=== PATIENT | male | born 1965 | race Caucasian/White ===

== ENCOUNTER 2023-09-15 20:35 | Emergency (ER) | payer BC ==
--- NOTE | 2023-09-15 20:56 | ED Physician Documentation ---
PD HPI SYNCOPE - Stated complaint Stated Complaint: NEAR SYNCOPE - Chief complaint Chief Complaint: Neuro - History obtained from History obtained from: Patient, Family - Additional information Additional information: c/o mild dizzines x 4 days, episodic without inciting, exacerbating, nor ameliorating factors. Had not had this before. Denies recent head injury, fever. The dizziness feels like room is spinning around him. Tonight while sitting on couch watching TV, sudden worsening of what was now severe vertigo with nausea, vomiting, diaphoresis. The vertigo is worse with moving head, closing eyes. Partially ameliorated by keeping still and eyes open. Denies numbness, weakness, visual changes Review of Systems Constitutional: reports: Reviewed and negative Eyes: reports: Reviewed and negative Ears: denies: Loss of hearing, Ear pain, Drainage/discharge, Tinnitus/ringing Cardiac: reports: Reviewed and negative Respiratory: reports: Reviewed and negative GI: reports: Nausea, Vomiting. denies: Abdominal Pain PD PAST MEDICAL HISTORY - Past Medical History Past Medical History: Yes Cardiovascular: High cholesterol Musculoskeletal: Osteoarthritis Other Past Medical History: Chronic Hip pain - Past Surgical History Past Surgical History: Yes Ortho: Other - Present Medications Home Medications: Ambulatory Orders Medication Instructions Recorded Confirmed Meclizine [Antivert] 25 mg PO Q6H PRN #20 tablet 09/15/23 Ondansetron Odt [Zofran Odt] 4 mg TL Q6H PRN #14 tablet 09/15/23 Simvastatin [Zocor] 40 mg PO DAILY 09/15/23 09/15/23 - Allergies Allergies/Adverse Reactions: Allergies Allergy/AdvReac Type Severity Reaction Status Date / Time prednisone Allergy Anxiety Verified 09/15/23 20:48 - Social History Does the pt smoke?: No Smoking Status: Never smoker Does the pt drink ETOH?: Yes ETOH Use: Beer Does the pt have substance abuse?: No - Immunizations Immunizations are current?: Yes - POLST Patient has POLST: No PD ED PE NORMAL - Vitals Vital signs reviewed: Yes - General General: Alert and oriented X 3, No acute distress, Well developed/nourished - HEENT HEENT: PERRL, EOMI, Moist mucous membranes - Cardiac Cardiac: RRR, No murmur - Respiratory Respiratory: No respiratory distress, Clear bilaterally - Neuro Neuro: Alert and oriented X 3, machine sorter 2-12 intact, No motor deficit, No sensory deficit, Normal speech Eye Opening: Spontaneous Motor: Obeys Commands Verbal: Oriented GCS Score: 15 Results - Vitals Vitals: Oxygen O2 Source Room air - EKG (time done) No standard instances EKG releavant findings:: EKG personally interpreted by author of this note. Relevant findings are: Rate: Rate (enter#) (77) Rhythm: NSR, Normal P waves [place]: LAD Intervals: Normal [place], QRS normal QRS: LVH Ischemia: Normal ST segments - Labs Labs: Laboratory Tests 09/15/23 09/15/23 09/15/23 20:55 20:55 20:55 WBC 11.2 H RBC 5.06 Hgb 16.3 Hct 46.3 MCV 91.5 MCH 32.2 H MCHC 35.2 RDW 12.7 Plt Count 234 MPV 10.3 Neut # (Auto) 9.0 H Lymph # (Auto) 1.3 L Lanier # (Auto) 0.7 Eos # (Auto) 0.1 Baso # (Auto) 0.1 Absolute Nucleated RBC 0.00 Nucleated RBC % 0.0 Sodium 139 Potassium 3.2 L Chloride 105 Carbon Dioxide 24 Anion Gap 10.0 BUN 14 Creatinine 0.9 Estimated GFR (MDRD) 86 L Glucose 186 H POC Whole Bld Glucose Calcium 9.6 Total Bilirubin 0.9 AST 16 ALT 23 Alkaline Phosphatase 64 Troponin I High Sens 3.5 Total Protein 7.5 Albumin 4.7 Globulin 2.8 Albumin/Globulin Ratio 1.7 Lipase 26 09/15/23 21:03 WBC RBC Hgb Hct MCV MCH MCHC RDW Plt Count MPV Neut # (Auto) Lymph # (Auto) Lanier # (Auto) Eos # (Auto) Baso # (Auto) Absolute Nucleated RBC Nucleated RBC % Sodium Potassium Chloride Carbon Dioxide Anion Gap BUN Creatinine Estimated GFR (MDRD) Glucose POC Whole Bld Glucose 179 H Calcium Total Bilirubin AST ALT Alkaline Phosphatase Troponin I High Sens Total Protein Albumin Globulin Albumin/Globulin Ratio Lipase PD Medical Decision Making - ED course Complexity details: reviewed results, re-evaluated patient, considered differential, d/w patient ED course: H+P strongly c/w peripheral vertigo. Unremarkable CBC (mild leukocytosis noted, WBC 11.2), mild hypokalemia (3.2), mild hyperglyemia (186). Normal hs-cTn (3.5) and unremarkable EKG. No imaging studies indicated with this isolated vertigo. He is given 1 liter NS, 12.5 MG meclizine PO, 4 mg IV zofran, 25meq potassium bicarbonate PO, and 600mg ibuprofen (late in stay, patient says he has mild headache and requests this). On reevaluation, he is in NAD, reports resolution of vertigo and n/v, able to slowly turn head without recurrence of symptoms. Results d/w patient, return precautions reviewed. E-prescribed meclizine, zofran. Departure - Departure Disposition: Home, Self Care Clinical Impression: Vertigo, Hypokalemia Condition: Good Instructions: ED Potassium Deficiency, ED Vertigo Unspecified Prescriptions: Meclizine [Antivert] 25 mg PO Q6H PRN #20 tablet PRN Reason: Vertigo Ondansetron Odt [Zofran Odt] 4 mg TL Q6H PRN #14 tablet PRN Reason: Nausea / Vomiting Comments: There were no concerning findings on tonight's tests. As we discussed, your white blood cell count was just above the normal range; this is not a concerning or specific finding. Your potassium level was low (3.2); this is not nearly low enough to cause symptoms nor immediate concern. You were given a dose of potassium bicarbonate orally before discharge from the ER in order to to help normalize your potassium level. It is important that you mention your low potassium to your primary care provider when you next see them (they might recommend having a repeat check of your potassium in the coming weeks). Your blood sugar was high (186); this is not high enough to cause symptoms nor immediate concern, but also should be mentioned when you next see your primary care provider. Discharge Date/Time: 09/15/23 22:52
[2023-09-15] MEDS: SODIUM CHLORIDE 0.9% 1,000 ML IV STA (21:13)
[2023-09-15 21:14] LABS: BASOPHILS # (AUTO) 0.1 10^3/uL (0.0-0.1); BASOPHILS % (AUTO) 0.7 %; EOSINOPHILS # (AUTO) 0.1 10^3/uL (0.0-0.7); EOSINOPHILS % (AUTO) 0.9 %; HCT - HEMATOCRIT 46.3 % (42.0-52.0); HGB - HEMOGLOBIN 16.3 g/dL (14.0-18.0); LYMPHOCYTES # (AUTO) 1.3 10^3/uL (1.5-3.5); LYMPHOCYTES % (AUTO) 11.6 %; MEAN CORPUSCULAR HEMOGLOBIN 32.2 pg (27.0-31.0); MEAN CORPUSCULAR HGB CONC 35.2 g/dL (32.0-36.0); MEAN CORPUSCULAR VOLUME 91.5 fL (80.0-94.0); MEAN PLATELET VOLUME 10.3 fL (7.4-11.4); MONOCYTES # (AUTO) 0.7 10^3/uL (0.0-1.0); MONOCYTES % (AUTO) 6.6 %; NEUTROPHILS % (AUTO) 79.8 %; PLT - PLATELET COUNT 234 10^3/uL (130-450); RED BLOOD COUNT 5.06 10^6/uL (4.70-6.10); RED CELL DISTRIBUTION WIDTH 12.7 % (12.0-15.0); WHITE BLOOD COUNT 11.2 x10^3/uL (4.8-10.8)
[2023-09-15 21:36] LABS: ALBUMIN 4.7 g/dL (3.2-5.5); ALBUMIN/GLOBULIN RATIO 1.7 (1.0-2.2); BILIRUBIN,TOTAL 0.9 mg/dL (0.2-1.0); CALCIUM 9.6 mg/dL (8.5-10.3); CREATININE 0.9 mg/dL (0.6-1.3); POTASSIUM 3.2 mmol/L (3.5-4.5); TOTAL PROTEIN 7.5 g/dL (6.4-8.9)
[2023-09-15] MEDS: ONDANSETRON 4 MG/2 ML VIAL IVP STA (21:55)
[2023-09-15] MEDS: IBUPROFEN 600 MG TABLET PO STA (22:22)
[2023-09-15] MEDS: POTASSIUM BICARB 25 MEQ TABLET PO STA (22:22)
[2023-09-15] MEDS: MECLIZINE 12.5 MG TABLET PO STA (22:22)
[2023-09-15 22:56] VITALS: BP 131/92; O2SAT 97
== END 2023-09-15 22:52 | disposition home or self-care (01) ==
LOC: EDBD → ED 20:35
DX: R42 Dizziness and giddiness (principal); E87.6 Hypokalemia; R73.9 Hyperglycemia, unspecified
CPT/HCPCS: 36415; 80053; 83690; 84484; 85025; 96374; 99284; A9270